=== PATIENT | female | born 1985 | race Hispanic/Latino ===

== ENCOUNTER 2017-09-25 20:14 | Emergency (ER) | payer SELFPAY ==
[2017-09-25] MEDS ORDERED: Diazepam 5 MG TAB ONE (21:01)
[2017-09-25] MEDS ORDERED: Ketorolac Tromethamine 30 MG/ML VIAL ONE (21:01)
== END 2017-09-25 21:35 | disposition home or self-care (01) ==
LOC: ERS 20:14
DX: M54.5 Low back pain (principal); I10 Essential (primary) hypertension
CPT/HCPCS: 96372; J1885